=== PATIENT | female | born 1990 | race Caucasian/White ===

== ENCOUNTER 2016-05-13 13:35 | Outpatient (RCR) | payer OTHER ==
[~2016-05-13 13:35] MED LIST: LOPERAMIDE2 MG PO; MOTRIN 800800 MG/TAB PO; PERCOCET 325 MG1 TA2 PO; PRENATAL1 TA7 PO; TYLENOL COLD PO; UNISOM25 MG
== END 2016-08-11 ==
LOC: WSOH
DX: Z01.83 Encounter for blood typing (principal); M79.642 Pain in left hand; M79.641 Pain in right hand

== ENCOUNTER 2016-09-21 07:12 | Outpatient (CLI) | payer OTHER ==
[~2016-09-21] VITALS: Ht 162.6 cm; Wt 93.6 kg
[2016-09-21 07:30] VITALS: BP 111/73; PULSE 90; TEMP 98.4
== END 2016-09-21 09:20 | disposition home or self-care (01) ==
LOC: LDRO 07:12
DX: O26.893 Other specified pregnancy related conditions, third trimester (principal); M54.89 Other dorsalgia; Z3A.35 35 weeks gestation of pregnancy; Z87.891 Personal history of nicotine dependence

== ENCOUNTER 2016-10-03 23:36 | Outpatient (CLI) | payer OTHER ==
[~2016-10-03] VITALS: Ht 167.6 cm; Wt 93.6 kg
[2016-10-03 23:52] VITALS: BP 128/85; PULSE 93; TEMP 97.9
[2016-10-03] MEDS ORDERED: TUMS500 MG (23:59)
[2016-10-04] VITALS: BP 128/85; PULSE 93; TEMP 97.9
[2016-10-04 00:17] VITALS: TEMP 97.9
[2016-10-04 01:10] VITALS: BP 124/74; PULSE 80; TEMP 98.3
== END 2016-10-04 01:10 ==
LOC: LDRO 23:36
DX: O47.1 False labor at or after 37 completed weeks of gestation (principal); Z3A.37 37 weeks gestation of pregnancy; Z87.891 Personal history of nicotine dependence

== ENCOUNTER 2016-10-05 17:08 | Outpatient (CLI) | payer OTHER ==
[~2016-10-05] VITALS: Ht 167.6 cm; Wt 93.2 kg
[~2016-10-05 17:08] MED LIST changes: +TUMS500 MG
[2016-10-05 17:28] VITALS: BP 117/70; PULSE 101; TEMP 98.3
[2016-10-05 18:00] VITALS: BP 123/73; PULSE 100
[2016-10-05 18:30] VITALS: BP 112/65; PULSE 89
== END 2016-10-05 19:15 | disposition home or self-care (01) ==
LOC: LDRO 17:08 → LDR 17:15 → LDRO 19:15
DX: O47.02 False labor before 37 completed weeks of gestation, second trimester (principal); Z3A.26 26 weeks gestation of pregnancy; Z87.891 Personal history of nicotine dependence
CPT/HCPCS: OP

== ENCOUNTER 2016-10-14 03:05 | Outpatient (CLI) | payer OTHER ==
[~2016-10-14] VITALS: Ht 167.6 cm; Wt 95.0 kg
[2016-10-14 04:15] VITALS: BP 122/78; PULSE 90; TEMP 98
[2016-10-15] MEDS ORDERED: TYLENOL 500MG500 MG PO (07:08)
== END 2016-10-14 05:05 | disposition home or self-care (01) ==
LOC: LDRO 03:05
DX: O47.9 False labor, unspecified (principal); Z3A.38 38 weeks gestation of pregnancy; Z87.891 Personal history of nicotine dependence

== ENCOUNTER 2016-10-15 06:22 | Inpatient (IN) | payer OTHER ==
[2016-10-15] VITALS (45 sets, daily range): BP systolic 91–132; BP diastolic 54–82; PULSE 58–110; TEMP 97.2–98
[~2016-10-15] VITALS: Ht 167.6 cm; Wt 95.0 kg
[2016-10-15] MEDS ORDERED: TYLENOL 500MG500 MG PO (07:08)
[2016-10-15 07:17] LABS: BASO % 0.5 % (0.0-2.0); EOS # 0.3 (0.0-0.7); EOS % 3.6 % (0-4.0); GRAN # 5.8 (1.4-6.5); HEMOGLOBIN 12.5 g/dl (12.5-16.0); LYMPH # 2.2 (1.2-3.4); LYMPH % 24.7 % (20.0-51.0); MEAN CELL VOLUME 85 fl (80.0-100.0); MEAN CORPUSCULAR HEMOGLOBIN 29 pg (27.0-31.0); MEAN CORPUSCULAR HGB CONC 34 g/dl (33.0-37.0); MEAN PLATELET VOLUME 10.4 fl (7.4-10.4); MONO # 0.4 (0.1-0.6); MONO % 4.9 % (1.7-9.3); PLATELET COUNT 261 K/mm3 (130-400); RED BLOOD COUNT 4.35 M/mm3 (4.10-5.30); REDCELL DISTRIBUTION WIDTH-CV 13.6 % (11.5-14.5); WHITE BLOOD COUNT 8.7 K/mm3 (4.8-10.8)
[2016-10-16 07:50] VITALS: BP 114/75; PULSE 88; TEMP 97.2
[2016-10-16] MEDS ORDERED: IBU800 M1 PO (08:53)
[2016-10-16] MEDS ORDERED: PERCOCET 325 MG1 TA2 PO (08:53)
[2016-10-16 21:25] VITALS: BP 113/76; PULSE 85; TEMP 97.5
[2016-10-17 08:33] VITALS: BP 107/67; PULSE 72
== END 2016-10-17 11:25 | disposition home or self-care (01) | DRG 775 ==
LOC: OB 06:22 → LDR 06:22 → OB 18:00
PROVIDERS: Student in an Organized Health Care Education/Training Program
PROC: 10E0XZZ Delivery of Products of Conception, External Approach (ICD-10-PCS; principal; 2016-10-15)
PROC: 3E033VJ Introduction of Other Hormone into Peripheral Vein, Percutaneous Approach (ICD-10-PCS; 2016-10-15)
DX: O99.824 Streptococcus B carrier state complicating childbirth (principal); Z3A.39 39 weeks gestation of pregnancy; Z37.0 Single live birth
CPT/HCPCS: C9113; J2540; J2590; J2795; J7120

== ENCOUNTER → 2018-05-10 | Outpatient (CLI) | payer OTHER ==
[~2018-05-10] MED LIST changes: +IBU800 M1 PO; +TYLENOL 500MG500 MG PO
== END ==
LOC: COL.RAD 12:57
DX: M25.511 Pain in right shoulder (principal)
CPT/HCPCS: J3301; Q9967